=== PATIENT | female | born 1975 | race African-American/Black ===

== ENCOUNTER 2016-12-18 02:03 | Emergency (ER) | payer OTHER ==
[~2016-12-18] VITALS: Ht 165.1 cm; Wt 111.0 kg
[2016-12-18 06:47] VITALS: BP 127/80
== END 2016-12-18 06:48 | disposition home or self-care (01) ==
LOC: ER 03:29
DX: H10.9 Unspecified conjunctivitis (principal); E66.9 Obesity, unspecified
CPT/HCPCS: 99283